=== PATIENT | female | born 1935 | race Caucasian/White ===

== ENCOUNTER → 2017-01-24 | Outpatient (CLI) | payer MEDICARE, OTHER ==
[~2017-01-24] VITALS: Ht 165.1 cm; Wt 69.4 kg
[~2017-01-24] MED LIST: ADENOSINE 58 MG in GIVE UN-DILUTED 0 ML IV ONE; ADENOSINE 90 MG/30 ML INJ IV ONE; ASPI81CH43; CALC-185; IRBE150T26; PRAVASTATIN PO; TRIA50TA2 PO
== END | disposition home or self-care (01) ==
LOC: Rad HDHVI 08:21
PROVIDERS: ATTEND Internal Medicine Cardiovascular Disease
DX: I10 Essential (primary) hypertension (principal); E78.00 Pure hypercholesterolemia, unspecified; E11.9 Type 2 diabetes mellitus without complications; R06.00 Dyspnea, unspecified
CPT/HCPCS: 78452; 93005; 96374; 96375; A9500; J0153

== ENCOUNTER → 2018-08-25 | Outpatient (CLI) | payer MEDICARE, OTHER ==
[~2018-08-25] MED LIST changes: -ADENOSINE 58 MG in GIVE UN-DILUTED 0 ML IV ONE; -ADENOSINE 90 MG/30 ML INJ IV ONE
== END | disposition home or self-care (01) ==
LOC: Rad HDHVI 08:57
PROVIDERS: ATTEND Internal Medicine Cardiovascular Disease
DX: R00.2 Palpitations (principal); I10 Essential (primary) hypertension; R00.0 Tachycardia, unspecified; E11.9 Type 2 diabetes mellitus without complications; E78.5 Hyperlipidemia, unspecified
CPT/HCPCS: 93306; 93880

== ENCOUNTER → 2018-09-14 | Outpatient (CLI) | payer MEDICARE, OTHER ==
[~2018-09-14] VITALS: Ht 165.1 cm; Wt 69.9 kg
[~2018-09-14] MED LIST changes: +ADENOSINE 59 MG in GIVE UN-DILUTED 0 ML IV ONE; +ADENOSINE 90 MG/30 ML INJ IV ONE
== END | disposition home or self-care (01) ==
LOC: Rad HDHVI 09:55
PROVIDERS: ATTEND Internal Medicine Cardiovascular Disease
DX: E11.9 Type 2 diabetes mellitus without complications (principal); E78.00 Pure hypercholesterolemia, unspecified; R06.02 Shortness of breath; R06.00 Dyspnea, unspecified; I10 Essential (primary) hypertension
CPT/HCPCS: 78452; 93005; 96374; 96375; A9500; J0153

== ENCOUNTER → 2019-02-15 | Outpatient (CLI) | payer MEDICARE, OTHER ==
[~2019-02-15] MED LIST changes: -ADENOSINE 59 MG in GIVE UN-DILUTED 0 ML IV ONE; -ADENOSINE 90 MG/30 ML INJ IV ONE
== END | disposition home or self-care (01) ==
LOC: Rad HDHVI 11:49
PROVIDERS: ATTEND Internal Medicine Cardiovascular Disease
DX: M16.12 Unilateral primary osteoarthritis, left hip (principal); I70.90 Unspecified atherosclerosis; N13.30 Unspecified hydronephrosis; M48.04 Spinal stenosis, thoracic region; M54.17 Radiculopathy, lumbosacral region; M25.78 Osteophyte, vertebrae
CPT/HCPCS: 72131; 73700

== ENCOUNTER → 2019-06-28 | Outpatient (CLI) | payer MEDICARE, OTHER | END | disposition home or self-care (01) | LOC: LAB 11:09 | PROVIDERS: ATTEND Internal Medicine Cardiovascular Disease | DX: R94.4 Abnormal results of kidney function studies (principal) | CPT/HCPCS: 36415; 82565 ==

== ENCOUNTER → 2019-06-29 | Outpatient (CLI) | payer MEDICARE, OTHER ==
[~2019-06-29] MED LIST changes: +IOHEXOL 350 MG/ML 100ML IJ ONE; +READI-CAT 2 (BARIUM SULF)(VANILLA SMOOTHIE) 450ML ONE
[2019-06-29 09:24] VITALS: BP 131/67
[2019-06-29 10:44] VITALS: BP 127/64
== END | disposition home or self-care (01) ==
LOC: Rad HDHVI 09:13
PROVIDERS: ATTEND Internal Medicine Cardiovascular Disease
DX: I70.0 Atherosclerosis of aorta (principal); K44.9 Diaphragmatic hernia without obstruction or gangrene; K57.92 Diverticulitis of intestine, part unspecified, without perforation or abscess without bleeding; R97.0 Elevated carcinoembryonic antigen [CEA]; R10.9 Unspecified abdominal pain
CPT/HCPCS: 74177; G0463; Q9967

== ENCOUNTER 2020-01-13 22:30 | Inpatient (IN) | payer MEDICARE, OTHER ==
[~2020-01-13] VITALS: Ht 157.5 cm; Wt 73.7 kg
[~2020-01-13 22:30] MED LIST changes: -IOHEXOL 350 MG/ML 100ML IJ ONE; -READI-CAT 2 (BARIUM SULF)(VANILLA SMOOTHIE) 450ML ONE
[2020-01-13 23:17] LABS: Basophils # (auto) 0.1 10 ^3/uL (0-0.2); Eosinophils # (auto) 0.1 10 ^3/uL (0-0.8); Eosinophils % (auto) 0.6 % (0.0-7.0); Monocytes # (auto) 0.7 10 ^3/uL (0-1.3)
[2020-01-13 23:19] LABS: Basophils % (auto) 0.4 % (0.0-2.0); Hematocrit 32.2 % (36.0-46.0); Hemoglobin 10.5 g/dL (12.2-16.2); Lymphocytes # (auto) 0.8 10 ^3/uL (0.4-5.4); Lymphocytes % (auto) 6.4 % (10.0-50.0); Mean Corpuscular Hemoglobin 27.3 pg (28.0-32.0); Mean Corpuscular Hgb Conc. 32.5 g/dL (32.0-36.0); Monocytes % (auto) 5.5 % (0.0-12.0); Neutrophils # (auto) 11.2 10 ^3/uL (1.6-8.6); Neutrophils % (auto) 87.1 % (37.0-80.0); Nucleated Red Blood Cells % 0.1 %; Platelet Count (auto) 233 10^3/uL (140-450); Red Blood Cells 3.83 10^6/uL (4.0-5.20); White Blood Cell 12.8 10^3/uL (4.4-10.8)
[2020-01-13 23:36] LABS: INR 0.97 (0.9-1.15); Partial Thromboplastin Time 20.5 sec (23.0-31.2)
[2020-01-13 23:45] LABS: Albumin 3.2 g/dL (3.4-5.0); BUN/Creatinine Ratio 35.5; Calcium 8.2 mg/dL (8.5-10.1); Magnesium 1.9 mg/dL (1.6-2.6); Potassium 3.4 mmol/L (3.5-5.1)
[2020-01-13 23:48] LABS: Bilirubin, Total 0.3 mg/dL (0.2-1.0); Total Protein 6.6 g/dL (6.4-8.2)
[2020-01-14] MEDS ORDERED: HYDROcodone-ACET 10/325MG TAB PO ONE (00:15)
[2020-01-14] MEDS ORDERED: ONDANSETRON HCL 4 MG/2 ML VIAL IV PRN ×2 (03:00→17:45)
[2020-01-14] MEDS ORDERED: SODIUM CHLORIDE 0.9% 1,000 ML IV SCH (03:00)
[2020-01-14 03:03] LABS: Urine Bacteria NONE SEEN /hpf (None Seen); Urine Blood 1+ /uL (Negative); Urine Mucus FEW (None Seen); Urine Specific Gravity 1.024 (1.001-1.035); Urine WBC 4 /hpf (0 - 5)
--- NOTE | 2020-01-14 04:30 | NUR ---
Patient arrived on the floor on a stretcher for right hip fracture. Alert and oriented x4. No SOB and no acute distress seen. Only experience pain on activity as per patient. Refused pain meds right now. Educate on fall safety. Call light within reach, bed on low position, refused non skid socks. Inform POC. patient verbalized understanding.Will continue to educate and monitor patient.
[2020-01-14 05:20] VITALS: BP 132/70
[2020-01-14] MEDS ORDERED: LOSA-69 PO (06:26)
[2020-01-14] MEDS ORDERED: BENZ100C97 PO (06:37)
[2020-01-14] MEDS ORDERED: AMLO5TAB15 PO (06:37)
[2020-01-14] MEDS ORDERED: CHOL20007 OR (06:37)
[2020-01-14] MEDS ORDERED: METF-370 PO (06:37)
[2020-01-14] MEDS ORDERED: PRAV20TA3 PO (06:37)
[2020-01-14] MEDS ORDERED: CETI10TA80 PO (06:37)
--- NOTE | 2020-01-14 06:55 | NUR ---
Report given to AM nurse. NO complains, No SOB seen.
--- NOTE | 2020-01-14 07:25 | NUR ---
OPENING SHIFT NOTE ASSUMED CARE OF PATIENT FROM PROMOTIONS TEAM LEADER RN PATRIA. PATIENT IS AWAKE, ALERT, AND ORIENTED X4. PATIENT HAS NO S/S OF DISTRESS/SOB OR PAIN. INSTRUCTED PATIENT ON POC, PATIENT VERBALIZED UNDERSTANDING. BED IS IN LOWEST POSITION WITH SIDE RAILS RAISED X2, BED WHEELS LOCKED, AND CALL LIGHT IS WITHIN REACH. WILL CONTINUE TO MONITOR.
[2020-01-14 08:00] VITALS: BP 139/67
[2020-01-14 09:00] VITALS: BP 139/67
[2020-01-14] MEDS: TRIAMTERENE/HCTZ 37.5/25 MG CAP/TAB PO SCH (09:42)
[2020-01-14] MEDS: ASPirin 81 mg TAB PO SCH (09:44)
[2020-01-14] MEDS: CALCIUM W/VIT D (600MG/400IU) TAB PO SCH (09:45)
[2020-01-14] MEDS: HYDROmorphone HCL 2 MG/ML VL IV PRN (09:45)
[2020-01-14] MEDS ORDERED: ENOXAPARIN SOD 40 MG/0.4 ML SYRINGE SC SCH (10:00)
[2020-01-14] MEDS ORDERED: POTASSIUM CHLORIDE 40 MEQ, LIDOCAINE 1% (LOCAL ANESTH.) 4 ML in SODIUM CHL 0.9% 100 ML IV ONE ×2 (11:30→22:00)
[2020-01-14] MEDS: SODIUM CHLORIDE 0.9% 1,000 ML IV SCH ×2 (11:30→23:57)
--- NOTE | 2020-01-14 11:30 | NUR ---
WOUND CARE NOTE: WOUND CARE IN TO SEE PATIENT PER WOUND CARE REQUEST. PATIENT ADMITTED TO [facility] FOR RIGHT HIP FRACTURE. PATIENT HAS NO OPEN WOUNDS. PATIENT IS SCHEDULED FOR SURGERY LATER IN THE DAY. PATIENT JOHNNY SCORE IS 15. RECOMMEND: FREQUENT Q2HOUR REPOSITIONING CONDITION ALLOWS. REDISTRIBUTE PRESSURE UTILIZING PILLOWS AND WEDGES. SKIN/WOUND CARE PLAN. CONTINUED MONITORING BY WOUND CARE TEAM.
[2020-01-14] MEDS ORDERED: EPOETIN ALFA 10,000 UNIT/1 ML VIAL SC ONE ×2 (11:45→22:00)
--- NOTE | 2020-01-14 12:00 | NUR ---
PATIENT TAKEN DOWN TO PRE-OP VIA BED. REPORT GIVEN TO PREOP RN MARCE. PATIENT HAS NO S/S OF DISTRESS/SOB OR PAIN AT THIS TIME.
[2020-01-14] MEDS ORDERED: ceFAZolin 1GM/50ML 50 ML IV ONE (12:22)
[2020-01-14 13:00] VITALS: BP 138/73
[2020-01-14] MEDS ORDERED: ceFAZolin 1GM/50ML 50 ML IV SCH ×2 (14:00→22:00)
[2020-01-14] MEDS ORDERED: fentaNYL CITRATE 100 MCG/2 ML VL ONE ×2 (16:20→16:23)
[2020-01-14] MEDS ORDERED: PROPOFOL 10 MG/ML 20 ML IV ONE (16:22)
[2020-01-14] MEDS ORDERED: ROCURONIUM 10MG/ML 10ML VIAL IV ONE (16:39)
[2020-01-14] MEDS ORDERED: SUCCINYLCHOLINE CHLORIDE 20 MG/ML 10ML VIAL IV ONE (16:39)
[2020-01-14] MEDS ORDERED: NEOSTIGMINE 1 MG/ML INJ (10mg/10ML VIAL) IV ONE (16:39)
[2020-01-14] MEDS ORDERED: GLYCOPYRROLATE 0.2 MG/ML 1ML VIAL IV ONE (16:39)
[2020-01-14] MEDS ORDERED: hydrALAZINE HCL 20 MG/ML VL IV PRN (17:45)
[2020-01-14] MEDS ORDERED: HYDROmorphone HCL 2 MG/ML VL IV PRN (17:45)
[2020-01-14] MEDS ORDERED: ePHEDrine SULFATE 50 MG/ML AMP IV PRN (17:45)
--- NOTE | 2020-01-14 18:56 | NUR ---
CLOSING SHIFT NOTE ENDORSED CARE FOR TUCKPOINTER CLEANER CAULKER RN. PATIENT HAS NO S/S OF DISTRESS/SOB OR PAIN AT THIS TIME.
--- NOTE | 2020-01-14 20:00 | NUR ---
Opening Shift Note Assumed care of patient, AAOX4. No S/S of distress/SOB or pain. Dressing X2 to right hip C/D/I and pedal pulses present. NS running @ 100mL. Bustillo patent and draining to gravity. Bed in lowest locked position, safety precautions in place and call light within reach. Instructed on POC and to call for assist PRN, will continue to monitor for changes Q1hr and PRN. Signed: 01/15/20 at 07 by PEDRO CHAMORRO <Co-Signature Required> Co-Signed: 01/15/20 at 07 by Nilam Rojas RN
[2020-01-14 22:00] VITALS: BP 117/55
[2020-01-14] MEDS: ceFAZolin 1GM/50ML 50 ML IV SCH (23:44)
[2020-01-14] MEDS: PRAVASTATIN SODIUM 20 MG TAB PO SCH (23:46)
[2020-01-15 05:00] VITALS: BP 132/72
[2020-01-15] MEDS: ceFAZolin 1GM/50ML 50 ML IV SCH ×3 (05:51→23:22)
[2020-01-15] MEDS: SODIUM CHLORIDE 0.9% 1,000 ML IV SCH ×2 (07:30→18:29)
[2020-01-15 08:00] VITALS: BP 118/59
[2020-01-15 08:20] VITALS: BP 118/59
[2020-01-15] MEDS: TRIAMTERENE/HCTZ 37.5/25 MG CAP/TAB PO SCH (10:42)
[2020-01-15] MEDS: ASPirin 81 mg TAB PO SCH (10:42)
[2020-01-15] MEDS: HYDROmorphone HCL 2 MG/ML VL IV PRN (10:42)
[2020-01-15] MEDS: CALCIUM W/VIT D (600MG/400IU) TAB PO SCH (10:43)
[2020-01-15 12:00] VITALS: BP 98/50
[2020-01-15 16:00] VITALS: BP 110/55
--- NOTE | 2020-01-15 18:49 | NUR ---
CLOSING SHIFT NOTE ENDORSED CARE TO INSULATION WORKER MIKI TAPIA. PATIENT HAS NO S/S OF DISTRESS/SOB OR PAIN AT THIS TIME.
[2020-01-15] MEDS: PRAVASTATIN SODIUM 20 MG TAB PO SCH (23:11)
[2020-01-15 23:12] VITALS: BP 126/53
[2020-01-16] MEDS: HYDROmorphone HCL 2 MG/ML VL IV PRN ×3 (01:47→21:10)
[2020-01-16 05:00] VITALS: BP 120/62
[2020-01-16] MEDS: ceFAZolin 1GM/50ML 50 ML IV SCH ×3 (05:36→22:00)
--- NOTE | 2020-01-16 07:35 | NUR ---
OPENING SHIFT NOTE ASSUMED CARE OF PATIENT FROM PLAYGROUND EQUIPMENT ERECTOR RN PATRIA. PATIENT IS AWAKE, ALERT, AND ORIENTED X4. PATIENT HAS NO S/S OF DISTRESS/SOB OR PAIN. INSTRUCTED PATIENT ON POC, PATIENT VERBALIZED UNDERSTANDING. BED IS IN LOWEST POSITION WITH SIDE RAILS RAISED X2, BED WHEELS LOCKED, SHANE IS HANGING BELOW BLADDER AND IS DRAINING YELLOW URINE AND CALL LIGHT IS WITHIN REACH. WILL CONTINUE TO MONITOR.
--- NOTE | 2020-01-16 07:40 | NUR ---
Surgical dressing removed from Pt's R lat thigh and hip. No bruising nor discoloration at either site. Wounds are flat with edges approximated and all janene intact. Skin around each wound cleansed gently with wound cleanser keeping incisions dry. [place] dressings applied to cover both incisions. Pt gianna well.
[2020-01-16 08:00] VITALS: BP 123/60
[2020-01-16 08:44] VITALS: BP 123/60
[2020-01-16] MEDS: SODIUM CHLORIDE 0.9% 1,000 ML IV SCH ×3 (10:30→23:30)
[2020-01-16] MEDS: TRIAMTERENE/HCTZ 37.5/25 MG CAP/TAB PO SCH (10:31)
[2020-01-16] MEDS: ASPirin 81 mg TAB PO SCH (10:31)
[2020-01-16] MEDS: CALCIUM W/VIT D (600MG/400IU) TAB PO SCH (10:31)
--- NOTE | 2020-01-16 10:50 | NUR ---
MD TAVAREZ AT BEDSIDE UPDATED MD ON PATIENT'S STATUS. INFORMED MD PATIENT WOULD LIKE TO CONTINUE HER METFORMIN PER MD THAT IS OKAY TO CONTINUE.
[2020-01-16 11:48] LABS: Basophils # (auto) 0 10 ^3/uL (0-0.2); Eosinophils # (auto) 0 10 ^3/uL (0-0.8); Lymphocytes # (auto) 0.5 10 ^3/uL (0.4-5.4); Red Blood Cells 2.48 10^6/uL (4.0-5.20)
[2020-01-16 11:50] LABS: Basophils % (auto) 0.1 % (0.0-2.0); Eosinophils % (auto) 0.1 % (0.0-7.0); Hematocrit 21.2 % (36.0-46.0); Lymphocytes % (auto) 5.4 % (10.0-50.0); Mean Corpuscular Hemoglobin 28.1 pg (28.0-32.0); Mean Corpuscular Volume 85.3 fL (80.0-100.0); Monocytes # (auto) 0.9 10 ^3/uL (0-1.3); Monocytes % (auto) 9.1 % (0.0-12.0); Neutrophils % (auto) 85.3 % (37.0-80.0); Platelet Count (auto) 162 10^3/uL (140-450); White Blood Cell 9.4 10^3/uL (4.4-10.8)
--- NOTE | 2020-01-16 11:56 | NUR ---
INFORMED MD TAVAREZ OF CRITICAL HGB OF 7.0. IS AWARE AND NO NEW ORDERS GIVEN.
[2020-01-16 12:06] LABS: Calcium 8.2 mg/dL (8.5-10.1); Potassium 4.1 mmol/L (3.5-5.1)
[2020-01-16 12:46] VITALS: BP 122/55
[2020-01-16 17:00] VITALS: BP 128/57
[2020-01-16] MEDS: LACTULOSE 20Gm/30ML SOLN PO PRN (18:02)
--- NOTE | 2020-01-16 19:11 | NUR ---
CLOSING SHIFT NOTE ENDORSED CARE TO VAULT WORKER RN MINA. PATIENT HAS NO S/S OF DISTRESS/SOB OR PAIN AT THIS TIME.
--- NOTE | 2020-01-16 19:15 | NUR ---
Assumed care of pt who is alert and oriented, c/o not having BM. Reassured that prn for constipation recently given by previuos nurse should work. Pt explained her entire background r/t illness. No other s/s of distress noted.
--- NOTE | 2020-01-16 21:10 | NUR ---
Pt requesting prn for pain. Educated on side effect of pain medication is constipation. Pt verbalized understanding and sted she couldn't move. Pt encouraged to reach for objects such as water and use bed controls to raise head up and down. Pt was previously using call light to request h.o.b. to be raised, pt shown how to use bed controls. Pt returned demonstration.
[2020-01-16 22:00] VITALS: BP 129/57
[2020-01-16] MEDS ORDERED: LACTULOSE 20Gm/30ML SOLN PO ONE (22:00)
[2020-01-16] MEDS: PRAVASTATIN SODIUM 20 MG TAB PO SCH (22:45)
[2020-01-17] VITALS (13 sets, daily range): BP systolic 121–158; BP diastolic 60–95
[2020-01-17] MEDS: HYDROmorphone HCL 2 MG/ML VL IV PRN (03:54)
[2020-01-17] MEDS: ceFAZolin 1GM/50ML 50 ML IV SCH ×3 (06:10→21:37)
--- NOTE | 2020-01-17 07:26 | NUR ---
OPENING SHIFT NOTE ASSUMED CARE OF PATIENT FROM TOOLING ENGINEER RN MINA. PATIENT IS AWAKE, ALERT, AND ORIENTED X4. PATIENT HAS NO S/S OF DISTRESS/SOB OR PAIN. INSTRUCTED PATIENT ON POC, PATIENT VERBALIZED UNDERSTANDING. BED IS IN LOWEST POSITION WITH SIDE RAILS RAISED X2, BED WHEELS LOCKED, SHANE IS HANGING BELOW BLADDER AND IS DRAINING YELLOW URINE, BEDSIDE COMMODE AND CALL LIGHT IS WITHIN REACH. WILL CONTINUE TO MONITOR.
[2020-01-17] MEDS: SODIUM CHLORIDE 0.9% 1,000 ML IV SCH ×2 (09:30→20:26)
--- NOTE | 2020-01-17 09:54 | NUR ---
PHYSICAL THERAPY AT BEDSIDE. PER PT IV ACCIDENTLY GOT PULLED OUT. PRESSURE DRESSING APPLIED. WILL INSERT NEW IV.
--- NOTE | 2020-01-17 10:30 | NUR ---
RECEIVED CALL FROM MD TAVAREZ. UPDATED MD ON PATIENT'S STATUS INCLUDING HEMOGLOBIN LEVEL. IS AWARE AND ORDERED 2 UNITS PRBCs TO BE GIVEN AND H AND H TO BE RECHECKED 1 HOUR POST TRANSFUSION. INFORMED MD [facility]OSPITAL [facility] IS TO TRANSFUSE 1 UNIT AND RECHECK H AND H AFTER ONE HOUR. PER HE WANTS TWO UNITS TO BE GIVEN ANY WAYS, INFORMED SOFTWARE PRODUCT MANAGER AND SHE INFORMED CNO.
--- NOTE | 2020-01-17 10:31 | NUR ---
MD TAVAREZ WANTS H AND H RECHECKED BEFORE BLOOD TRANSFUSION. WILL FOLLOW THROUGH WITH ORDERS.
[2020-01-17] MEDS: ASPirin 81 mg TAB PO SCH (11:00)
[2020-01-17] MEDS: TRIAMTERENE/HCTZ 37.5/25 MG CAP/TAB PO SCH (11:00)
[2020-01-17] MEDS: metFORMIN HYDROCHLORIDE 500 MG TAB PO SCH (11:00)
[2020-01-17] MEDS: CALCIUM W/VIT D (600MG/400IU) TAB PO SCH (11:00)
[2020-01-17 11:45] LABS: Basophils # (auto) 0 10 ^3/uL (0-0.2); Eosinophils # (auto) 0 10 ^3/uL (0-0.8); Lymphocytes # (auto) 0.4 10 ^3/uL (0.4-5.4); Monocytes # (auto) 0.6 10 ^3/uL (0-1.3); Neutrophils # (auto) 10.8 10 ^3/uL (1.6-8.6); Platelet Count (auto) 199 10^3/uL (140-450); White Blood Cell 11.8 10^3/uL (4.4-10.8)
[2020-01-17 11:47] LABS: Basophils % (auto) 0.3 % (0.0-2.0); Hematocrit 20.4 % (36.0-46.0); Lymphocytes % (auto) 3.1 % (10.0-50.0); Mean Corpuscular Hemoglobin 28.3 pg (28.0-32.0); Mean Corpuscular Hgb Conc. 33.6 g/dL (32.0-36.0); Mean Corpuscular Volume 84.5 fL (80.0-100.0); Monocytes % (auto) 5.2 % (0.0-12.0); Neutrophils % (auto) 91.4 % (37.0-80.0); Red Blood Cells 2.41 10^6/uL (4.0-5.20); Red Cell Distribution Width 14.4 % (11.8-14.3)
[2020-01-17 11:51] LABS: Hemoglobin 6.8 g/dL (12.2-16.2)
--- NOTE | 2020-01-17 11:53 | NUR ---
CLEMENT TAVAREZ FOR CRITICAL HEMOGLOBIN.
--- NOTE | 2020-01-17 11:59 | NUR ---
MD TAVAREZ AT BEDSIDE UPDATED MD ON PATIENT'S STATUS INCLUDING WANTING DILAUDID CHANGED, MD IS AWARE AND ORDERED NORCO TO BE GIVEN FOR PAIN MANAGEMENT AND MD ORDERED STAT CT WITHOUT CONTRAST WILL FOLLOW THROUGH WITH ORDERS.
--- NOTE | 2020-01-17 13:20 | NUR ---
Nutrition Assessment Notes Please refer to link for full assessment notes. Est Energy needs: 0271-7302 kcals (20-23 kcal/kgBW) Est Protein needs: 73-80 gms/day (1.0-1.1 gm/kgBW) Will continue to monitor and reassess prn. Addendum: 01/17/20 at [address] Amended: Links added.
--- NOTE | 2020-01-17 15:51 | NUR ---
CALLED BLOOD BANK FOR SECOND UNIT OF BLOOD. THEY SAID IT WILL BE READY IN 10 MINUTES BECAUSE THEY HAVE TO CROSS MATCH. WILL AWAIT CALL BACK.
--- NOTE | 2020-01-17 16:41 | NUR ---
assessment Patient is a 85 year old female who is alert and oriented. Prior to admission patient lived home alone and functioned independently. Per patients daughter Roxy patient has a cane and wheelchair for home use. Roxy informed me patient was sitting on her bar stool and she twisted when getting up and fell on her right side and fractured her hip. Per Roxy family wants patient to return home on discharge. Patient will need a fww and a ss consult for home health PT. Per Roxy she prefers who Dr Angeles recommends [email or web address] or [facility]. I informed Roxy I will continue to monitor and follow up as appropriate. Roxy verbalized understanding. Addendum: 01/17/20 at 1650 by Marleny RAMÍREZ Amended: Links added.
[2020-01-17] MEDS ORDERED: HYDROcodone-ACET 10/325MG TAB PO PRN (19:00)
--- NOTE | 2020-01-17 19:05 | NUR ---
OPENING SHIFT NOTE ASSUMED CARE OF PATIENT. PATIENT IS AWAKE, ALERT, AND ORIENTED X4. PATIENT HAS NO S/S OF DISTRESS/SOB OR PAIN. INSTRUCTED PATIENT ON POC, PATIENT VERBALIZED UNDERSTANDING. BED IS IN LOWEST POSITION WITH SIDE RAILS RAISED X2, BED WHEELS LOCKED, SHANE IS HANGING BELOW BLADDER AND IS DRAINING YELLOW URINE, BEDSIDE COMMODE AND CALL LIGHT IS WITHIN REACH. WILL CONTINUE TO MONITOR.
--- NOTE | 2020-01-17 19:28 | NUR ---
CLOSING SHIFT NOTE ENDORSED CARE TO WHITING CAN WORKER RN . PATIENT HAS NO S/S OF DISTRESS/SOB OR PAIN AT THIS TIME.
[2020-01-17 21:25] LABS: Hematocrit 24.9 % (36.0-46.0); Hemoglobin 8.6 g/dL (12.2-16.2)
[2020-01-17] MEDS: PRAVASTATIN SODIUM 20 MG TAB PO SCH (21:37)
[2020-01-18] MEDS: SODIUM CHLORIDE 0.9% 1,000 ML IV SCH ×2 (05:25→15:30)
[2020-01-18] MEDS: ceFAZolin 1GM/50ML 50 ML IV SCH ×3 (05:25→22:59)
[2020-01-18 05:28] VITALS: BP 151/69
[2020-01-18 09:00] VITALS: BP 124/60
[2020-01-18] MEDS: ASPirin 81 mg TAB PO SCH (09:09)
[2020-01-18] MEDS: metFORMIN HYDROCHLORIDE 500 MG TAB PO SCH (09:10)
[2020-01-18] MEDS: TRIAMTERENE/HCTZ 37.5/25 MG CAP/TAB PO SCH (09:25)
[2020-01-18] MEDS: CALCIUM W/VIT D (600MG/400IU) TAB PO SCH (09:25)
[2020-01-18] MEDS ORDERED: IRON SUCROSE COMPLEX 200 MG in SODIUM CHL 0.9% 100 ML IV SCH (12:00)
[2020-01-18] MEDS ORDERED: EPOETIN ALFA 10,000 UNIT/1 ML VIAL SC ONE (12:00)
[2020-01-18 13:00] VITALS: BP 140/68
[2020-01-18] MEDS: SODIUM FERR GLUC 62.5MG/5ML 125 MG in SODIUM CHL 0.9% 100 ML IV SCH (13:00)
[2020-01-18 13:21] LABS: Basophils # (auto) 0 10 ^3/uL (0-0.2); Basophils % (auto) 0.3 % (0.0-2.0); Eosinophils # (auto) 0.1 10 ^3/uL (0-0.8); Eosinophils % (auto) 0.6 % (0.0-7.0); Hematocrit 30.1 % (36.0-46.0); Hemoglobin 10.2 g/dL (12.2-16.2); Lymphocytes # (auto) 0.9 10 ^3/uL (0.4-5.4); Lymphocytes % (auto) 8.2 % (10.0-50.0); Mean Corpuscular Hemoglobin 29.6 pg (28.0-32.0); Mean Corpuscular Hgb Conc. 33.8 g/dL (32.0-36.0); Mean Corpuscular Volume 87.4 fL (80.0-100.0); Monocytes % (auto) 9.5 % (0.0-12.0); Neutrophils # (auto) 8.6 10 ^3/uL (1.6-8.6); Neutrophils % (auto) 81.4 % (37.0-80.0); Nucleated Red Blood Cells % 0.1 %; Platelet Count (auto) 242 10^3/uL (140-450); Red Blood Cells 3.45 10^6/uL (4.0-5.20); Red Cell Distribution Width 15.4 % (11.8-14.3); White Blood Cell 10.6 10^3/uL (4.4-10.8)
--- NOTE | 2020-01-18 20:00 | NUR ---
Opening Shift Note Assumed care of patient. Awake, alert and oriented x4. No S/S of distress/SOB or pain. Pt is on 2L NC with even and unlabored respirations. Bustillo is off the floor, patent and draining clear, yellow urine. Dressing to right thigh is clean, dry and intact. Instructed on POC and to call for assist PRN. Bed locked, in lowest position, call light within reach, side rails up. Will continue to monitor for changes Q1hr and PRN.
[2020-01-18 22:00] VITALS: BP 138/69
[2020-01-18] MEDS: PRAVASTATIN SODIUM 20 MG TAB PO SCH (23:00)
[2020-01-19] VITALS (7 sets, daily range): BP systolic 90–144; BP diastolic 44–81
[2020-01-19] MEDS: SODIUM CHLORIDE 0.9% 1,000 ML IV SCH ×3 (02:45→21:30)
--- NOTE | 2020-01-19 05:20 | NUR ---
Dressing change To right thigh. Moderate amount of serosanguineous fluid seen on old dressing.
[2020-01-19] MEDS: ceFAZolin 1GM/50ML 50 ML IV SCH ×3 (05:44→21:51)
[2020-01-19] MEDS: ASPirin 81 mg TAB PO SCH (10:24)
[2020-01-19] MEDS: metFORMIN HYDROCHLORIDE 500 MG TAB PO SCH (10:24)
[2020-01-19] MEDS: TRIAMTERENE/HCTZ 37.5/25 MG CAP/TAB PO SCH (10:25)
--- NOTE | 2020-01-19 10:26 | NUR ---
Patient sitting in chair at bedside. Denies any pain at this time. Scheduled medications given per order. Patient stable.
--- NOTE | 2020-01-19 11:20 | NUR ---
PT at bedside to assist patient from bedside chair back to bed. Patient stable.
[2020-01-19] MEDS: CALCIUM W/VIT D (600MG/400IU) TAB PO SCH (12:43)
[2020-01-19] MEDS: SODIUM FERR GLUC 62.5MG/5ML 125 MG in SODIUM CHL 0.9% 100 ML IV SCH (12:44)
--- NOTE | 2020-01-19 12:44 | NUR ---
Scheduled po and IV medications given per order. Patient eating lunch with no distress noted. Patient stable.
--- NOTE | 2020-01-19 13:25 | NUR ---
Patient resting comfortably in bed with Dr. Angeles at bedside.
--- NOTE | 2020-01-19 15:20 | NUR ---
Scheduled IV abx given per order. Patient stable at this time.
[2020-01-19 15:44] LABS: Basophils # (auto) 0 10 ^3/uL (0-0.2); Basophils % (auto) 0.2 % (0.0-2.0); Eosinophils # (auto) 0.1 10 ^3/uL (0-0.8); Eosinophils % (auto) 0.9 % (0.0-7.0); Hemoglobin 9.3 g/dL (12.2-16.2); Lymphocytes # (auto) 0.8 10 ^3/uL (0.4-5.4); Lymphocytes % (auto) 8.6 % (10.0-50.0); Mean Corpuscular Hemoglobin 28.8 pg (28.0-32.0); Mean Corpuscular Hgb Conc. 33.1 g/dL (32.0-36.0); Mean Corpuscular Volume 87.1 fL (80.0-100.0); Monocytes # (auto) 0.9 10 ^3/uL (0-1.3); Monocytes % (auto) 10.2 % (0.0-12.0); Neutrophils # (auto) 7.3 10 ^3/uL (1.6-8.6); Neutrophils % (auto) 80.1 % (37.0-80.0); Nucleated Red Blood Cells % 0.1 %; Platelet Count (auto) 271 10^3/uL (140-450); Red Blood Cells 3.21 10^6/uL (4.0-5.20); Red Cell Distribution Width 15.1 % (11.8-14.3); White Blood Cell 9.2 10^3/uL (4.4-10.8)
--- NOTE | 2020-01-19 19:25 | NUR ---
Opening Shift Note Assumed patient care from Lily LIVINGSTON. Patient AOx 4 w/ HOB at 30 degrees. Patient has no s/s of distress or SOB. Patient is sitting in bed w/ bed locked in lowest position. Will continue to monitor.
[2020-01-19] MEDS: PRAVASTATIN SODIUM 20 MG TAB PO SCH (21:52)
[2020-01-20 05:00] VITALS: BP 140/74
[2020-01-20] MEDS: ceFAZolin 1GM/50ML 50 ML IV SCH ×3 (05:34→21:49)
[2020-01-20] MEDS: SODIUM CHLORIDE 0.9% 1,000 ML IV SCH ×2 (07:30→18:34)
[2020-01-20 08:00] VITALS: BP 143/63
--- NOTE | 2020-01-20 08:00 | NUR ---
ASSESSMENT NOTE PT IS ALERT ORIENTED X4, RESTING IN BED IN LOW WOODS POSITION, ABLE TO SELF REPOSITION AND VERBALIS HER DEMANDS, DRY CLEAN DRESSING NOTED AT RT HIP AREA, MILD EDEMA WITH SWOLLEN NOTED AT RT LEG TO THE ANKLE NOTED, PAIN 0/10, SHANE CATHETER TO GRAVITY, FALL RISK PRECAUTIONS, NEXT TO THE NURSING STATION, CALL LIGHT WITHIN REACH, CALL LIGHT WITHIN REACH
[2020-01-20 09:00] VITALS: BP 144/97
[2020-01-20] MEDS: TRIAMTERENE/HCTZ 37.5/25 MG CAP/TAB PO SCH (09:36)
[2020-01-20] MEDS: ASPirin 81 mg TAB PO SCH (09:36)
[2020-01-20] MEDS: metFORMIN HYDROCHLORIDE 500 MG TAB PO SCH (09:37)
[2020-01-20] MEDS: CALCIUM W/VIT D (600MG/400IU) TAB PO SCH (10:00)
--- NOTE | 2020-01-20 11:25 | NUR ---
PHYSICAL THERAPY AT BED SIDE
[2020-01-20] MEDS: SODIUM FERR GLUC 62.5MG/5ML 125 MG in SODIUM CHL 0.9% 100 ML IV SCH (12:20)
[2020-01-20 13:00] VITALS: BP 144/74
--- NOTE | 2020-01-20 14:28 | NUR ---
Nutrition Followup Notes Pt wt is 72.5 kg Pt was awake when rounded this morning. Pt is with a Cardiac 2gNa diet, appetite is poor aeb ave 48% PO intake over 5 meals per RN doc. Pt stated that she just can't eat all of the meals given to her, that it is too much food for her. Noted that the pt is 85 years old and appetites are typically reduced in the elderly. Encouraged pt to try to increase her PO intake a little. Est Energy needs: 7805-6716 kcals (20-23 kcal/kgBW) Est Protein needs: 73-80 gms/day (1.0-1.1 gm/kgBW) Will continue to monitor and reassess prn. LABS: BUN 25 H, Gluc 188 H, Ca 8.2 L, Alb 3.2 L GI: Pt had 1 BM on 01/18 per RN doc. BS: 14 mod risk. Refer to wound assessment report for full details. PES: Altered nutrition related lab values r/t current/chronic medical condition aeb elev BUN, hyperglycemia, hypocalcemis, mild hypoalbuminemia Comments Will continue to monitor PO status, skin status, pertinent labs and weight trends. Will f/u in 3-5 days. 1) Continue to carefully monitor pt PO intake to meet at least 75% of meals 2) Continue current plan of care
--- NOTE | 2020-01-20 15:00 | NUR ---
WOUND DRESSING WOUND DRESSING CHANGE DONE AT RT HIP, NO SIGNS OF INFECTION NOTED, TOLERATED WELL
[2020-01-20 17:00] VITALS: BP 144/73
--- NOTE | 2020-01-20 18:36 | NUR ---
PT CONTINUE STABLE, CONTINUE MONITORING
--- NOTE | 2020-01-20 19:00 | NUR ---
Opening Shift Note Assumed care of patient, awake and alert. No S/S of distress/SOB or pain. Instructed on POC and to call for assist PRN, will continue to monitor for changes Q1hr and PRN.
[2020-01-20] MEDS: PRAVASTATIN SODIUM 20 MG TAB PO SCH (21:49)
[2020-01-20 22:00] VITALS: BP 139/68
[2020-01-21] MEDS: ACETAMINOPHEN 325 MG TAB PO PRN ×3 (01:57→21:30)
[2020-01-21] MEDS: SODIUM CHLORIDE 0.9% 1,000 ML IV SCH ×3 (03:30→23:30)
[2020-01-21 04:58] VITALS: BP 143/74
[2020-01-21] MEDS: ceFAZolin 1GM/50ML 50 ML IV SCH ×3 (05:31→21:20)
--- NOTE | 2020-01-21 07:30 | NUR ---
Opening Shift Note Assumed care of patient, awake and alert. No S/S of distress/SOB or pain. Instructed on POC and to call for assist PRN, will continue to monitor for changes Q1hr and PRN. PER PT, PAIN ON HER RIGHT LEG DURING MOVEMENT, OTHERWISE HER PAIN IS 0/10..
[2020-01-21 07:54] LABS: Basophils # (auto) 0 10 ^3/uL (0-0.2); Basophils % (auto) 0.5 % (0.0-2.0); Eosinophils # (auto) 0.1 10 ^3/uL (0-0.8); Eosinophils % (auto) 1.6 % (0.0-7.0); Hematocrit 27.5 % (36.0-46.0); Hemoglobin 9.2 g/dL (12.2-16.2); Lymphocytes # (auto) 0.9 10 ^3/uL (0.4-5.4); Lymphocytes % (auto) 9.9 % (10.0-50.0); Mean Corpuscular Hemoglobin 29.6 pg (28.0-32.0); Mean Corpuscular Hgb Conc. 33.5 g/dL (32.0-36.0); Mean Corpuscular Volume 88.2 fL (80.0-100.0); Monocytes # (auto) 0.8 10 ^3/uL (0-1.3); Monocytes % (auto) 9.5 % (0.0-12.0); Neutrophils # (auto) 6.8 10 ^3/uL (1.6-8.6); Neutrophils % (auto) 78.5 % (37.0-80.0); Nucleated Red Blood Cells % 0.1 %; Platelet Count (auto) 305 10^3/uL (140-450); Red Blood Cells 3.12 10^6/uL (4.0-5.20); Red Cell Distribution Width 15.8 % (11.8-14.3); White Blood Cell 8.6 10^3/uL (4.4-10.8)
[2020-01-21 09:12] VITALS: BP 147/76
[2020-01-21] MEDS: ASPirin 81 mg TAB PO SCH (09:13)
[2020-01-21] MEDS: ENOXAPARIN SOD 40 MG/0.4 ML SYRINGE SC SCH (09:13)
[2020-01-21] MEDS: LACTULOSE 20Gm/30ML SOLN PO PRN (09:13)
[2020-01-21] MEDS: TRIAMTERENE/HCTZ 37.5/25 MG CAP/TAB PO SCH (09:14)
[2020-01-21] MEDS: metFORMIN HYDROCHLORIDE 500 MG TAB PO SCH (09:14)
--- NOTE | 2020-01-21 11:57 | NUR ---
D/C Planning Regarding social service consult for SNF placement at [facility] ). Spoke to patient regarding placement. Patient is in agreement of placement. Faxed clinical information to [facility]. Per Xander Ph:) or Ph:) patient has been accepted and will assign a room and following doctor once they received COVID test result. Informed RN Maryse [facility] is requesting COVID test.
--- NOTE | 2020-01-21 12:45 | NUR ---
WOUND CARE NOTE: WOUND CARE IN TO SEE PATIENT FOR REEVALUATION. PATIENT REMAINS TO BE WOUND FREE. PATIENT JOHNNY SCORE IS 16. MOISTURE BARRIER CREAM AND OPTIFOAM GENTLE SACRAL DRESSING PREVENTATIVE. RECOMMEND: FREQUENT Q2HOUR REPOSITIONING CONDITION ALLOWS. REDISTRIBUTE PRESSURE UTILIZING PILLOWS AND WEDGES. BID/PRN MOISTURE BARRIER CREAM PREVENTATIVE. SKIN/WOUND CARE PLAN. CONTINUED MONITORING BY WOUND CARE TEAM.
[2020-01-21 13:00] VITALS: BP 150/78
[2020-01-21] MEDS: SODIUM FERR GLUC 62.5MG/5ML 125 MG in SODIUM CHL 0.9% 100 ML IV SCH (13:52)
[2020-01-21] MEDS: CALCIUM W/VIT D (600MG/400IU) TAB PO SCH (13:53)
--- NOTE | 2020-01-21 15:47 | NUR ---
D/C Planning COVID test is still pending. Test results need to be faxed to facility before patient can be transfer to facility . MIKI Serra was informed.
[2020-01-21 17:00] VITALS: BP 140/73
--- NOTE | 2020-01-21 17:30 | NUR ---
DRESSING CHANGE RIGHT HIP PRIMAPORE DRESSING CHANGED ORDERED. PT TOLERATED WELL.
--- NOTE | 2020-01-21 18:48 | NUR ---
COVID REPORT FAXED TO [facility].
[2020-01-21] MEDS: PRAVASTATIN SODIUM 20 MG TAB PO SCH (21:20)
[2020-01-21 22:00] VITALS: BP 145/75
[2020-01-22 05:00] VITALS: BP 140/70
[2020-01-22] MEDS: ceFAZolin 1GM/50ML 50 ML IV SCH (05:16)
--- NOTE | 2020-01-22 06:59 | NUR ---
Closing note. patient up to BSC for BM. tylenol for pain times 1. vital signs stable patient resting in bed comfortably.
[2020-01-22 09:00] VITALS: BP 136/74
[2020-01-22] MEDS: ASPirin 81 mg TAB PO SCH (09:50)
[2020-01-22] MEDS: ENOXAPARIN SOD 40 MG/0.4 ML SYRINGE SC SCH (09:51)
[2020-01-22] MEDS: CALCIUM W/VIT D (600MG/400IU) TAB PO SCH (09:51)
[2020-01-22] MEDS: TRIAMTERENE/HCTZ 37.5/25 MG CAP/TAB PO SCH (09:51)
[2020-01-22] MEDS: metFORMIN HYDROCHLORIDE 500 MG TAB PO SCH (09:57)
[2020-01-22] MEDS: SODIUM CHLORIDE 0.9% 1,000 ML IV SCH (09:58)
--- NOTE | 2020-01-22 11:27 | NUR ---
1120 01/22/20 - Contacted by Hope from [facility] who stated patient will be transported to [facility] via [facility] on [address] between [id number]. Hope requested to include copy of COVID results in discharge papers. Informed nurse Maryse of information stated above. Addendum: 01/22/20 at 1148 by Slime Fraire RN 1145 01/22/20 Patient has been assigned to room One at [facility]
[2020-01-22 13:00] VITALS: BP 128/80
--- NOTE | 2020-01-22 13:22 | NUR ---
REPORT GIVEN TO MIKI SAMUEL OF [facility].
[2020-01-22] MEDS: SODIUM FERR GLUC 62.5MG/5ML 125 MG in SODIUM CHL 0.9% 100 ML IV SCH (13:30)
[2020-01-22 14:28] VITALS: BP 136/74
--- NOTE | 2020-01-22 15:45 | NUR ---
Discharge instructions given as ordered. All questions and concerns addressed. Patient verbalized understanding. IV removed with catheter intact, pressure dressing applied, velasco catheter removed. Medication reconciliation form completed and copy given to patient. Patient transported by [facility] with all personal belongings. No distress noted at time of departure.
== END 2020-01-22 16:00 | DRG 481 ==
LOC: EDBD 22:30 → ER 22:30 → OVERFLOW 22:31 → CENTRAL 01-14 04:30
PROVIDERS: ADMIT Internal Medicine Cardiovascular Disease; ATTEND Internal Medicine Cardiovascular Disease
PROC: 0QS604Z Reposition Right Upper Femur with Internal Fixation Device, Open Approach (ICD-10-PCS; principal; 2020-01-15)
PROC: 30233N1 Transfusion of Nonautologous Red Blood Cells into Peripheral Vein, Percutaneous Approach (ICD-10-PCS; 2020-01-17)
DX: S72.141A Displaced intertrochanteric fracture of right femur, initial encounter for closed fracture (principal); E44.0 Moderate protein-calorie malnutrition; R64 Cachexia; D62 Acute posthemorrhagic anemia; E87.6 Hypokalemia; W01.0XXA Fall on same level from slipping, tripping and stumbling without subsequent striking against object, initial encounter; M81.0 Age-related osteoporosis without current pathological fracture; E11.9 Type 2 diabetes mellitus without complications; E78.5 Hyperlipidemia, unspecified; Z20.828 Contact with and (suspected) exposure to other viral communicable diseases; G47.33 Obstructive sleep apnea (adult) (pediatric); I10 Essential (primary) hypertension; M47.812 Spondylosis without myelopathy or radiculopathy, cervical region; M47.816 Spondylosis without myelopathy or radiculopathy, lumbar region; Z80.6 Family history of leukemia; Z85.038 Personal history of other malignant neoplasm of large intestine; Z80.3 Family history of malignant neoplasm of breast; Y93.89 Activity, other specified; Y92.89 Other specified places as the place of occurrence of the external cause; Y99.8 Other external cause status
CPT/HCPCS: 36415; 70450; 71045; 72125; 72192; 73501; 74176; 76000; 80048; 80053; 81001; 82565; 82962; 83735; 85014; 85018; 85025; 85610; 85730; 86850; 86900; 86901; 86920; 93005; 97110; 97116; 97163; 97530; G0378; J0330; J0690; J0885; J1756; J2001; J2405; J2704